=== PATIENT | male | born 1945 | race Caucasian/White ===

== ENCOUNTER 2020-10-09 10:52 | Outpatient (CLI) | payer MEDICARE, OTHER ==
[~2020-10-09 10:52] MED LIST: HYDR1TAB4 PO
== END 2020-10-09 23:59 | disposition home or self-care (01) ==
LOC: LAB 10:52
PROVIDERS: ATTEND Specialist
DX: Z01.812 Encounter for preprocedural laboratory examination (principal); Z20.822 Contact with and (suspected) exposure to COVID-19
CPT/HCPCS: C9803; U0003

== ENCOUNTER 2020-10-14 06:22 | Inpatient (IN) | payer MEDICARE, OTHER ==
[~2020-10-14] VITALS: Ht 175.3 cm; Wt 72.6 kg
[~2020-10-14 06:22] MED LIST changes: +BACITRACIN 50000 UNITS/VIAL ONE; +BUPIVACAINE 0.25% 75 MG/30 ML VIAL ONE; +BUPIVACAINE 0.5 % PF 150 MG/30 ML VIAL ONE; +CLINDAMYCIN 900 MG/6 ML VIAL ONE; +FENTANYL PF 100MCG/2ML AMPUL ONE; +MIDAZOLAM HCL 2 MG/2ML VIAL ONE; +ROCURONIUM BROMIDE 50 MG/5 ML ONE
[2020-10-14] MEDS ORDERED: HYDROMORPHONE INJ 2 MG/ML DISP.SYRIN ONE (06:44)
[2020-10-14] MEDS ORDERED: TRANEXAMIC ACID 3,000 MG in SODIUM CHLORIDE IRRIG SOLUTION 70 ML IR ONE (07:30)
[2020-10-14] MEDS ORDERED: ROCURONIUM BROMIDE 50 MG/5 ML ONE (07:53)
[2020-10-14 10:15] VITALS: BP 150/77
[2020-10-14 10:30] VITALS: BP 136/74
[2020-10-14 10:45] VITALS: BP 121/72
[2020-10-14 11:00] VITALS: BP 118/61
[2020-10-14] MEDS ORDERED: MAG HYDROX/AL HYDROX/SIMETH 30 ML UDC PO PRN (11:00)
[2020-10-14] MEDS ORDERED: CLONIDINE HCL 0.1 MG TABLET PO PRN (11:00)
[2020-10-14] MEDS ORDERED: ONDANSETRON HCL/PF 4 MG/2 ML VIAL IV PRN (11:00)
[2020-10-14] MEDS ORDERED: oxyCODONE IR immediate release 5 MG PO PRN (11:00)
[2020-10-14] MEDS ORDERED: ESCITALOPRAM OXALATE (10 MG) 10 MG TABLET PO SCH (11:00)
[2020-10-14] MEDS ORDERED: diphenhydrAMINE HCL 25 MG CAPSULE PO PRN (11:00)
[2020-10-14] MEDS ORDERED: ESCITALOPRAM OXALATE (10 MG) 10 MG TABLET PO STA (11:08)
--- NOTE | 2020-10-14 11:21 | NUR ---
MS RN NOTES Patient admitted to [facility] at 1005 s/p L shoulder total arthroplasty from OR. Patient alert but drowsy initially, gradually becoming more awake. Initial VS B/P 150/77, Hr 91, O2 93%, RR 18, Temp 97.3. By 1100 patient is A&Ox4. Denies pain or discomfort at this time. Educated patient to keep arm in sling to prevent dislocation. Educated to notify nurse promptly if any pain starts to be felt. Urinal at bedside but patient is ambulatory.
[2020-10-14] MEDS ORDERED: COLACE 250 MG CAPSULE PO PRN (11:30)
[2020-10-14] MEDS ORDERED: SENOKOT 8.6 MG TABLET PO PRN (11:30)
[2020-10-14] MEDS ORDERED: ZOFRAN 4mg/2ML IV PRN (11:30)
[2020-10-14] MEDS ORDERED: DULCOLAX 10 MG/SUPP.RECT RC PRN (11:30)
[2020-10-14] MEDS ORDERED: TYLENOL 650 MG TABLET PO PRN (11:30)
[2020-10-14] MEDS: FAMOTIDINE (20 MG) 20 MG TABLET PO SCH ×2 (12:03→21:05)
[2020-10-14] MEDS: IV D5/0.45 NACL 1,000 ML IV PRN ×2 (13:48→21:06)
[2020-10-14] MEDS ORDERED: MIRT7.5T10 PO (15:32)
[2020-10-14] MEDS ORDERED: ESCI10TA PO (15:32)
[2020-10-14] MEDS ORDERED: PRAZ2CAP2 PO (15:32)
[2020-10-14] MEDS ORDERED: ATOR40TA PO (15:32)
[2020-10-14] MEDS ORDERED: AMLO10TA4 PO (15:32)
[2020-10-14] MEDS: CLINDAMYCIN 600 MG in IV D5W 50 ML IV SCH ×2 (15:33→21:05)
[2020-10-14] MEDS ORDERED: CHOL100062 PO (15:45)
[2020-10-14] MEDS ORDERED: ASCO-352 PO (15:45)
[2020-10-14] MEDS ORDERED: HYDR-3980 PO (15:45)
[2020-10-14] MEDS ORDERED: MULT-447 PO (15:45)
--- NOTE | 2020-10-14 15:47 | NUR ---
MS RN NOTES Notified MD that VTE score is 3 (patient is 75 yo and had L shoulder arthroplasty. MD said no need for anticoagulant, just encourage ambulation and DVT machines while in bed.
[2020-10-14 15:57] VITALS: BP 139/89
[2020-10-14] MEDS ORDERED: HYDROCODONE/APAP 10/325MG TABLET PO PRN (17:30)
[2020-10-14] MEDS ORDERED: PRAZOSIN HCL 1 MG CAPSULE PO SCH (18:00)
[2020-10-14] MEDS ORDERED: MIRTAZAPINE 15 MG TABLET PO PRN (18:00)
[2020-10-14] MEDS ORDERED: ATORVASTATIN 40 MG TABLET PO SCH (18:00)
--- NOTE | 2020-10-14 18:51 | NUR ---
MS RN NOTES Patient is A&Ox4. VSS. Pupils equal and reactive to light. Voice is clear and non-slurred. All extremities move evenly, except L shoulder d/t s/p arthroplasty. No JVD. Heart rate and rhythm regular. Lung sounds clear throughout. Bowel sounds active x4 quadrants. Skin intact -no issues. Ambulatory and steady. Urine is yellow and clear with no foul odor. No BM this shift. Cap refill <3 seconds, skin turgor < 3 seconds. No c/o pain or discomfort at this time.
--- NOTE | 2020-10-14 18:55 | NUR ---
MS RN CLOSING NOTES Patient is A&Ox4. pleasant and cooperative with care. Verbalized understanding of use of sling and wedge when he stands up, verbalized understanding of how to use incentive spirometer. Ambulation encouraged for DVT prophylaxis. Denies pain or discomfort. Tolerating meals and medications well. No patient concerns at this time.
--- NOTE | 2020-10-14 19:51 | NUR ---
MS/TELE/RN RECEIVED PATIENT IN THE ROOM LYING IN BED WATCHING TV, PATIENT WAS AWAKE, ALERT, ORIENTED, COMFORTABLE, NO C/O PAIN, NO DISTRESS NOTED, PATIENT IS S/P LEFT SHOULDER TOTAL ARTHROPLASTY, SLING AT LEFT ARM IN PLACE, DRESSING AT ANTERIOR ASPECT OF LEFT SHOULD WAS CLEAN, DRY AND INTACT. WILL MONITOR.
[2020-10-14 20:00] VITALS: BP 116/77
[2020-10-14] MEDS: MORPHINE SULFATE INJ 4 MG/ML DISP.SYRIN IM/IV/SC PRN (20:59)
[2020-10-14] MEDS ORDERED: AMBIEN 5 MG TABLET PO PRN (22:00)
[2020-10-15] MEDS: MORPHINE SULFATE INJ 4 MG/ML DISP.SYRIN IM/IV/SC PRN ×2 (00:24→07:53)
[2020-10-15] MEDS: CLINDAMYCIN 600 MG in IV D5W 50 ML IV SCH (03:39)
--- NOTE | 2020-10-15 06:19 | NUR ---
MS/TELE/RN PATIENT APPEAR SLEEPING, APPEAR COMFORTABLE, NO DISTRESS NOTED, IVF INFUSING, CALL LIGHT IN REACH, ALL NEEDS ATTENDED AT THIS TIME, WILL CONTINUE TO MONITOR.
[2020-10-15 08:00] VITALS: BP 142/80
--- NOTE | 2020-10-15 08:13 | NUR ---
MS RN NOTES Patient is awake, alert and oriented x4. C/o 8/10 pain to L shoulder relieved by PRN Morphine. Verbalizes wanting to go home, awaiting ortho clearance. No other complaints at this time. Able to verbalize needs.
[2020-10-15] MEDS: IV D5/0.45 NACL 1,000 ML IV PRN (08:40)
[2020-10-15 08:41] VITALS: BP 142/80
[2020-10-15] MEDS: FAMOTIDINE (20 MG) 20 MG TABLET PO SCH (08:41)
[2020-10-15] MEDS ORDERED: ESCITALOPRAM OXALATE (10 MG) 10 MG TABLET PO SCH ×2 (09:00)
[2020-10-15] MEDS ORDERED: ASCORBIC ACID 500 MG TABLET PO SCH (09:00)
[2020-10-15] MEDS ORDERED: ASPIRIN EC 325 MG TABLET.DR PO SCH (09:00)
[2020-10-15] MEDS ORDERED: CHOLECALCIFEROL 1,000 UNIT TABLET (VIT D3) PO SCH (09:00)
[2020-10-15] MEDS ORDERED: AMLODIPINE BESYLATE 10 MG TABLET PO SCH (09:00)
--- NOTE | 2020-10-15 12:59 | NUR ---
MS DISCHARGE NOTES Patient in stable condition upon discharge at 1240. Patient escorted by nurse to car via wheelchair. to drive pt home. Prior to discharge patient educated to continue home medications and new medication Percocet as ordered. Rx given to patient. Ortho came to give pt instructions on using L shoulder/arm prior to discharge. Shoulder arthroplasty aftercare education given to patient as well as follow up instructions for surgical dressing change by MD. Pt denies any pain upon discharge.
== END 2020-10-15 12:45 | disposition home or self-care (01) | DRG 483 ==
LOC: DS 06:22 → MED 06:25
PROVIDERS: ADMIT Internal Medicine; ATTEND Internal Medicine
PROC: 0RRK0JZ Replacement of Left Shoulder Joint with Synthetic Substitute, Open Approach (ICD-10-PCS; principal; 2020-10-14)
PROC: 0LS40ZZ Reposition Left Upper Arm Tendon, Open Approach (ICD-10-PCS; 2020-10-14)
DX: M19.012 Primary osteoarthritis, left shoulder (principal); Z96.651 Presence of right artificial knee joint; E78.5 Hyperlipidemia, unspecified; I10 Essential (primary) hypertension; F17.200 Nicotine dependence, unspecified, uncomplicated; Z96.653 Presence of artificial knee joint, bilateral; Z79.899 Other long term (current) drug therapy; H91.90 Unspecified hearing loss, unspecified ear; F39 Unspecified mood [affective] disorder; F10.11 Alcohol abuse, in remission; Y90.9 Presence of alcohol in blood, level not specified; M19.90 Unspecified osteoarthritis, unspecified site; Z88.5 Allergy status to narcotic agent
CPT/HCPCS: 87081-TC; A4565; C1713; C1776; G0378; J1100; J1170; J2250; J2270; J2405; J2704; J2765; J3010; J3490; J7060